=== PATIENT | female | born 1955 | race Caucasian/White ===

== ENCOUNTER → 2016-10-11 | Outpatient (CLI) | payer BC ==
[~2016-10-11] MED LIST: BARIUM SULFATE 135 ML (E-Z HD) PO ONE
--- NOTE | 2016-10-11 14:00 | RADRPT ---
PROCEDURE: Barium swallow. CLINICAL INDICATION: Dysphasia. TECHNIQUE: Barium was administered orally and several spot and overhead radiographs were obtained. COMPARISON: No prior study is available for comparison. FINDINGS: There is no aspiration. There are tertiary contractions of the esophagus. Esophageal motility is otherwise normal. There i s a small hiatus hernia. There is no stricture, mass, or ulcer. There is no gastroesophageal reflux. IMPRESSION: 1. Tertiary contractions of the esophagus. 2. Small hiatus hernia. 3. Otherwise normal esophagram. RPTAT: QQ .Kip Ribeiro MD, MD Date Time Electronically viewed and signed by .Kip Ribeiro MD, on 10/11/2016 14:00 .R/
== END | disposition home or self-care (01) ==
LOC: RAD 08:26
PROVIDERS: ATTEND Emergency Medicine
DX: R13.10 Dysphagia, unspecified (principal); R10.9 Unspecified abdominal pain
CPT/HCPCS: 74230; Z7610

== ENCOUNTER → 2017-04-19 | Outpatient (CLI) | payer BC ==
--- NOTE | 2017-04-19 15:19 | RADRPT ---
PROCEDURE: US Abdomen and Retroperitoneum. CLINICAL INDICATION: Abdominal pain. Vomiting. TECHNIQUE: Multiple real-time longitudinal and transverse images were acquired of the patient's ab domen and retroperitoneum utilizing a curved array transducer. COMPARISON: No prior studies are available for comparison. FINDINGS: The liver is normal in size and normal in echogenicity. The liver has a normal smooth surface. Ther e is no focal hepatic lesion. Color Doppler and pulsed Doppler sonography demonstrate normal antegra de flow in the portal vein. The gallbladder is normal with no stones or wall thickening. The bile ducts are normal with the common bile duct measuring 4.5 mm in diameter. The spleen is normal in size. There is no focal splenic lesion. The pancreas is partially seen and is unremarkable. There is no free fluid. The right kidney measures 9.2 cm and the left kidney measures 10.0 cm. There is a hyperechoic nodule inferiorly in the left kidney measuring 0.6 x 0.9 cm consistent with a benign lipoma or angiomyolipoma. There is no other renal mass. There is no hydronephrosis or calculus. The abdominal aorta is not dilated. The inferior vena cava is unremarkable. IMPRESSION: 1. 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 2. Otherwise unremarkable abdomen and retroperitoneum ultrasound. RPTAT: QQ .Kip Ribeiro MD, MD Date Time Electronically viewed and signed by .Kip Ribeiro MD, on 04/19/2017 15:18 .R/
== END | disposition home or self-care (01) ==
LOC: U/S 08:37
DX: D17.71 Benign lipomatous neoplasm of kidney (principal); R10.9 Unspecified abdominal pain; R11.10 Vomiting, unspecified
CPT/HCPCS: 76700

== ENCOUNTER 2018-11-21 08:20 | Day surgery (SDC) | payer BC ==
[~2018-11-21] VITALS: Ht 160 cm; Wt 56.6 kg
--- NOTE | 2018-11-21 06:52 | PREOPHP ---
DATE OF ADMISSION: 11/21/2018 HISTORY OF PRESENT ILLNESS: This 63-year-old patient is admitted for elective cataract surgery of th e right eye. The patient has had decreased vision in both eyes due to the cataracts over the past 3 years. Patient denies any prior history of eye disease or injury. The patient's systemic history is positive for hypertension, neuropathy, hypercholesterolemia, fibromyalgia. CURRENT MEDICATIONS: Includes: 1. Atorvastatin. 2. Prolia. 3. Linzess. 4. Cymbalta. 5. Diclofenac. 6. Omeprazole. 7. Losartan. 8. Nitrostat sublingual. 9. Tramadol. 10. Dicyclomine. 11. Ranitidine. 12. Iron sulfate. 13. Gabapentin. 14. Upton Thyroid. 15. Ezetimibe. ALLERGIES: There are no known allergies. PHYSICAL EXAMINATION: The visual acuity with best correction is 20/50 in the right eye and 20/60 in the left eye. Slit lamp examination reveals nuclear sclerotic and posterior subcapsular cataract elio nges in both eyes. Applanation tonometry is 18 mmHg. Examination of the retina is within normal kelly its. DIAGNOSIS: Nuclear sclerotic and posterior subcapsular cataract, right eye. PLAN: Cataract extraction with lens implant, right eye. The risks and alternatives to the surgery h ave been discussed with the patient as well as the hope for improvement of visual acuity leading to g reater ability to perform activities of daily living. The patient understands this and agrees to pro ceed with surgery. Dictated By: BERNARDINO LONGORIA/LESLY Conf#: [id number] DID#: [id number]
[~2018-11-21 08:20] MED LIST changes: -BARIUM SULFATE 135 ML (E-Z HD) PO ONE; +CARBACHOL 0.01% 1.5 ML OPH INJ ONE; +CEFAZOLIN 1 GM INJ ONE; +CYCLOPENTOLATE/PHENYLEPH 2 ML OPH OPER SCH; +DICLOFENAC 0.1% 2.5 ML OPH OPER SCH; +EPINEPHrine 1 MG INJ ONE; +GENTAMICIN 80 MG INJ ONE; +LIDOCAINE 4% (MPF) 5 ML INJ ONE; +MOXIFLOXACIN 0.5% 3 ML OPH OPER SCH; +SOD CHLORIDE 0.9% 1,000 ML IV SCH; +TROPICAMIDE 1% 15 ML OPH OPER SCH
[2018-11-21 09:31] VITALS: Ht 160 cm; Wt 56.6 kg
[2018-11-21 09:36] VITALS: BP 125/74; PULSE 77; RESP 16
--- NOTE | 2018-11-21 09:49 | PREAC ---
Date/Time of Note Date/Time of Note DATE: 11/21/18 TIME: 09:46 Anesthesia Eval and Record Evaluation Time Pre-Procedure Interview DATE: 11/21/18 TIME: 09:46 Age 63 Sex female NPO: 8 hrs Preoperative diagnosis R eye cataract Planned procedure R cataract extr w/ IOL Past Medical History Past Medical History: Includes (syncope of unknown causes; fibromyalgia) Cardio: HTN, Dyslipidemia Endo: Hypothyroid Surgery & Anesthesia Issues No known issue (L breast mastectomy; implanted cardiac monitoring device) Meds Anticoagulation: No Beta Beatrice within 24 hr: No Reason Beta Beatrice not given: Pt. not on B-Beatrice No Active Prescriptions or Reported Meds Current Medications Diclofenac Sodium (Voltaren 0.1%) 1 drop Q5 MIN X 3 OPER Last administered on 11/21/18at 09:07; Admin Dose 1 DROP; Start 11/21/18 at 08:00 Tropicamide (Mydriacyl 1%) 1 drop Q5 MIN X3 OPER Last administered on 11/21/18at 09:07; Admin Dose 1 DROP; Start 11/21/18 at 08:00 Moxifloxacin HCl (Vigamox) 1 drop Q5 MIN X 3 OPER Last administered on 09:07; Admin Dose 1 DROP; Start 11/21/18 at 08:00 Cyclopentolate/ Phenylephrine (Cyclomydril Oph 2 ml) 1 drop Q5 MIN X 3 OPER Last administered on 11/21/18 09:07; Admin Dose 1 DROP; Start 11/21/18 at 08:00 Sodium Chloride 1,000 ml @ 25 mls/hr Q24H IV Last administered on 11/21/18 09:07; Admin Dose 25 MLS/HR; Start 11/21/18 at 08:00 Meds reviewed: Yes Allergies Coded Allergies: No Known Allergy (Unverified , 11/21/18) Allergies Reviewed: Yes Labs/Studies Labs Reviewed: Reviewed by anesthesiologist test: N/A Studies: ECG (nsr, nml), CXR Pre-procedure Exam Last vitals Vital Signs Date Temp Pulse Resp B/P (MAP) Pulse Ox O2 O2 Flow FiO2 Time Delivery Rate 11/21/18 98.1 77 16 125/74 98 Room Air 09:36 (91) Airway: Adequate mouth opening, Adequate thyromental dist Mallampati: Mallampati II Teeth: Abnormal (missing molars) Lung: Normal Heart: Normal ASA Physical Status ASA physical status: 2 Emergency: None Planned Anesthetic General/MAC: MAC Pre-operative Attestations Prior to commencing anesthesia and surgery, the patient was re-evaluated, there was verification of: *The patient's identity *The results of appropriate recent lab work and preoperative vital signs *The above evaluation not changing prior to induction *Anesthetic plan, risk benefits, alternative and complications discussed with patient/family; questions answered; patient/family understands, accepts and wishes to proceed. AVTAR BOWDEN Nov 21, 2018 09:49
[2018-11-21] MEDS ORDERED: ALBUTEROL 0.083% (NEB) 2.5 MG/3 ML AMP HHN PRN (10:00)
[2018-11-21] MEDS ORDERED: OXYCODONE/ACETAMINOPHEN (5/325) TAB PO PRN (10:00)
[2018-11-21] MEDS ORDERED: hydrALAzine 20 MG INJ IV PRN (10:00)
[2018-11-21] MEDS ORDERED: ACETAMINOPHEN 500 MG TAB PO PRN (10:00)
[2018-11-21] MEDS ORDERED: LABETALOL HCL 20MG INJ IV PRN (10:00)
[2018-11-21] MEDS ORDERED: DIPHENHYDRAMINE 50 MG INJ IV PRN (10:00)
[2018-11-21] MEDS ORDERED: FENTAnyl 50 MCG/ML VIAL IV PRN (10:00)
[2018-11-21] MEDS ORDERED: ONDANSETRON 4 MG INJ IV PRN (10:00)
[2018-11-21] MEDS ORDERED: ACETAMINOPHEN 325 MG TAB PO PRN (10:00)
[2018-11-21] MEDS ORDERED: MIDAZOLAM 1 MG/ML 2 ML INJ ONE (10:05)
[2018-11-21] MEDS ORDERED: LIDOCAINE 2% (SDV) 5 ML INJ ONE (10:05)
[2018-11-21] MEDS ORDERED: PROPOFOL 20 ML ONE (10:05)
[2018-11-21] MEDS ORDERED: FENTAnyl 50 MCG/ML VIAL ONE (10:05)
[2018-11-21] MEDS ORDERED: LIDOCAINE 4% (MPF) 5 ML INJ INJ ONE ×2 (12:12)
[2018-11-21] MEDS ORDERED: DEXAMETHASONE 4 MG/ML 1 ML INJ INJ ONE (12:13)
[2018-11-21 12:37] VITALS: BP 123/58; PULSE 82; RESP 16
--- NOTE | 2018-11-21 12:44 | PAC ---
Date/Time of Note Date/Time of Note DATE: 11/21/18 TIME: 12:42 Post-Anesthesia Notes Post-Anesthesia Note Last documented vital signs Vital Signs Date Temp Pulse Resp B/P (MAP) Pulse Ox O2 O2 Flow FiO2 Time Delivery Rate 11/21/18 98.1 98 77 89 16 16 125/74 98 98 Room 09:36 123 (91) 123/ Air RA 7 58 Activity: WNL Respiratory function: WNL Cardiovascular function: WNL Mental status: Baseline Pain reasonably controlled: Yes Hydration appropriate: Yes Nausea/Vomiting absent: Yes AVTAR BOWDEN Nov 21, 2018 12:44
--- NOTE | 2018-11-21 12:45 | SIPON ---
Date/Time of Note Date/Time of Note DATE: 11/21/18 TIME: 12:43 Operative Report Preoperative Diagnosis nuclear sclerotic cataract od Postoperative Diagnosis same Operation/Procedure Performed cataract extraction with lens implant od Surgeon bernardino downs customer assistance associate none Anesthesia: MAC Estimated blood loss: none Transfusion Required none Specimen none Grafts/Implants posterior chamber lens implant Complications none BERNARDINO DOWNS MD Nov 21, 2018 12:45
[2018-11-21 12:54] VITALS: BP 146/82
[2018-11-21 13:12] VITALS: BP 123/63; PULSE 81
--- NOTE | 2018-11-21 15:58 | OPR ---
DATE OF OPERATION: 11/21/2018 PREOPERATIVE DIAGNOSIS: Nuclear sclerotic cataract, right eye. POSTOPERATIVE DIAGNOSIS: Nuclear sclerotic cataract, right eye. PROCEDURE: Cataract extraction with lens implant, right eye. SURGEON: Bernardino Nagel MD ANESTHESIOLOGIST: Cindy Mejia NP ANESTHESIA: Local standby. DESCRIPTION OF PROCEDURE: The patient was brought to the operating room and placed on the table with an IV in place and the patient attached to an threat monitoring analyst. Oxygen was given via face mask. After some intravenous sedation was administered, local anesthesia was given using Xylocaine 2% with epinephrine, mixed with Marcaine 0.5%. This was given in a lid block and retrobulbar injection. The p atient was then prepped and draped in the usual sterile manner. A wire lid speculum was inserted between the lids of the right eye. A Superblade was used to enter th e anterior chamber at the corneoscleral limbus at the 10:30 o'clock position. A separate incision was made using a 3.0-mm keratome which entered the corneoscleral junction at the 12 o'clock position. Th rough this 3-mm opening, an irrigating cystotome was introduced into the anterior chamber. The chambe r was filled with Viscoat and an anterior capsulotomy was performed. Balanced salt solution was then used for hydrodissection of the lens. A phacoemulsification handpiece was then brought into the fiel d and introduced into the anterior chamber. The lens nucleus was emulsified using a deep groove and c racking the nucleus into quadrants. Following this, each quadrant was aspirated and emulsified at the pupillary margin. After this was completed, the irrigation/aspiration handpiece was brought to the field, introduced in to the posterior chamber, and the lens cortical material was removed. When this was completed, additi onal Viscoat was injected into the anterior and posterior chambers. The 3-mm opening had its internal lips enlarged, and then the posterior chamber intraocular lens noreen uring 15.5 diopters ([employer]ile[employer] [id number]) was then injected into the posterior chamber using the lens injector system. After the leading haptic was introduced into the capsular bag and th e lens optic was present in the center of the eye, the injector was removed and the trailing haptic w as grasped with non-toothed forceps and introduced into the capsular fold superiorly. A Sinskey hook was then used to rotate the intraocular lens so that the lips were oriented in the horizontal meridia n. One 10-0 nylon suture was placed across the wound. Prior to tying, the irrigation/aspiration handpiece was reintroduced into the anterior chamber to rem ove the Viscoat. Miochol was instilled to constrict the pupil, and then the 10-0 nylon suture was tie d. The ends were cut short and then the knot was buried. Then, 0.5 mL of dexamethasone and 0.5 mL of Ancef were injected into the sub-Tenon space in the infer ior fornix. Ciloxan drops were then placed on the surface of the eye. The speculum was removed and a patch was applied. The patient then left the operating room in satisfactory condition. Dictated By: BERNARDINO LONGORIA/LESLY Conf#: [id number] DID#: [id number]
== END 2018-11-21 13:58 | disposition home or self-care (01) ==
LOC: SDS 08:20
PROVIDERS: ATTEND Ophthalmology
DX: H25.11 Age-related nuclear cataract, right eye (principal); I10 Essential (primary) hypertension; E03.9 Hypothyroidism, unspecified; E78.5 Hyperlipidemia, unspecified
CPT/HCPCS: 66984; J0171; J0690; J1100; J1580; J2250; J3010; V2632; Z7512; Z7610

== ENCOUNTER 2019-02-20 05:54 | Day surgery (SDC) | payer BC ==
[~2019-02-20] VITALS: Ht 160 cm; Wt 55.2 kg
[2019-02-20] VITALS (18 sets, daily range): BP systolic 92–135; BP diastolic 49–71; PULSE 74–90; RESP 9–48; Ht 160 cm; Wt 55.2 kg
[~2019-02-20 05:54] MED LIST changes: +ACYC400T2 PO; +ATOR40TA68 PO; +CALC1TAB94 PO; -CARBACHOL 0.01% 1.5 ML OPH INJ ONE; -CEFAZOLIN 1 GM INJ ONE; +CHOL100062 PO; -CYCLOPENTOLATE/PHENYLEPH 2 ML OPH OPER SCH; -DICLOFENAC 0.1% 2.5 ML OPH OPER SCH; +DICY10CA40 PO; +DULO60CA6 PO; -EPINEPHrine 1 MG INJ ONE; +FER325 PO; +GABA100C14 PO; +GABA300C16 PO; -GENTAMICIN 80 MG INJ ONE; -LIDOCAINE 4% (MPF) 5 ML INJ ONE; +LINA72CA PO; +LOSA1TAB22 PO; -MOXIFLOXACIN 0.5% 3 ML OPH OPER SCH; +NIT3 SL; +OMEG-158 PO; +OMEP40CA38 PO; +POLY17PO6 PO; +RANI150T5 PO; -SOD CHLORIDE 0.9% 1,000 ML IV SCH; +THYR30TA PO; +TRAM100T27 PO; -TROPICAMIDE 1% 15 ML OPH OPER SCH
[2019-02-20] MEDS ORDERED: CEFAZOLIN 1 GM INJ ONE (06:43)
[2019-02-20] MEDS ORDERED: LIDOCAINE 4% (MPF) 5 ML INJ ONE (06:43)
[2019-02-20] MEDS ORDERED: LIDOCAINE 1% (MPF) 10 ML INJ ONE (06:44)
[2019-02-20] MEDS ORDERED: TETRACAINE 0.5% 4 ML OPH ONE (06:44)
[2019-02-20] MEDS ORDERED: EPINEPHrine 1 MG INJ ONE (06:44)
[2019-02-20] MEDS ORDERED: DEXAMETHASONE 4 MG/ML 1 ML INJ ONE (06:44)
[2019-02-20] MEDS ORDERED: GENTAMICIN 80 MG INJ ONE (06:44)
[2019-02-20] MEDS ORDERED: CARBACHOL 0.01% 1.5 ML OPH INJ ONE (06:45)
[2019-02-20] MEDS ORDERED: NA HYALURONATE/CHONDROITIN 0.5 ML SYG ONE (06:45)
[2019-02-20] MEDS ORDERED: CYCLOPENTOLATE/PHENYLEPH 2 ML OPH OPER SCH (07:00)
[2019-02-20] MEDS ORDERED: TROPICAMIDE 1% 15 ML OPH OPER SCH (07:00)
[2019-02-20] MEDS ORDERED: DICLOFENAC 0.1% 2.5 ML OPH OPER SCH (07:00)
[2019-02-20] MEDS ORDERED: MOXIFLOXACIN 0.5% 3 ML OPH OPER SCH (07:00)
[2019-02-20] MEDS ORDERED: SOD CHLORIDE 0.9% 1,000 ML IV SCH (07:00)
[2019-02-20] MEDS ORDERED: FENTAnyl 50 MCG/ML VIAL ONE ×2 (07:14→08:16)
[2019-02-20] MEDS ORDERED: PROPOFOL 20 ML ONE (07:16)
[2019-02-20] MEDS ORDERED: MIDAZOLAM 1 MG/ML 2 ML INJ ONE (07:49)
[2019-02-20] MEDS ORDERED: hydrALAzine 20 MG INJ IV PRN (08:00)
[2019-02-20] MEDS ORDERED: ONDANSETRON 4 MG INJ IV PRN (08:00)
[2019-02-20] MEDS ORDERED: FENTAnyl 50 MCG/ML VIAL IV PRN ×3 (08:00)
[2019-02-20] MEDS ORDERED: LABETALOL HCL 20MG INJ IV PRN (08:00)
[2019-02-20] MEDS ORDERED: MEPERIDINE 25 MG INJ IV PRN (08:00)
[2019-02-20] MEDS ORDERED: OXYCODONE/ACETAMINOPHEN (5/325) TAB PO PRN ×2 (08:00)
[2019-02-20] MEDS ORDERED: LORAZEPAM 2 MG INJ IV PRN (08:00)
[2019-02-20] MEDS ORDERED: GABAPENTIN 300 MG CAP PO ONE (08:48)
== END 2019-02-20 10:54 | disposition home or self-care (01) ==
LOC: SDS 05:54
PROVIDERS: ATTEND Ophthalmology
DX: H25.12 Age-related nuclear cataract, left eye (principal); I10 Essential (primary) hypertension; E03.9 Hypothyroidism, unspecified; E78.5 Hyperlipidemia, unspecified
CPT/HCPCS: 66984; J0171; J0690; J1100; J1580; J2250; J3010; V2632; Z7512; Z7610